=== PATIENT | female | born 1995 | race Hispanic/Latino ===

== ENCOUNTER 2024-06-18 14:59 | Emergency (ER) | payer OTHER, SELFPAY ==
[2024-06-18 15:14] VITALS: BP 161/92; PULSE 86; RESP 18; TEMP 37.1; O2SAT 97; BMI 44.4
--- NOTE | 2024-06-18 16:25 | DI.RAD.S_ITS ---
PROCEDURE: XR CHEST 2V INDICATIONS: cough fever TECHNIQUE: 2 views of the chest were acquired. COMPARISON: None. FINDINGS: Surgical changes and devices: None. Lungs and pleura: Low lung volumes. No dense airspace disease or pleural effusions. Mediastinum: Normal heart size Bones and chest wall: Unremarkable IMPRESSION: No acute radiographic abnormality. Low lung volumes. Dictated by: Abhijeet Whitman M.D. on 06/18/2024 at 16:49 Approved by: Abhijeet Whitman M.D. on 06/18/2024 at 16:50
--- NOTE | 2024-06-18 16:37 | ED_ITS ---
HPI - URI/Sore Throat General Chief Complaint: Upper Respiratory Symptoms Stated Complaint: upper respiratory congestion Time Seen by Provider: 06/18/24 15:50 Source: patient Mode of arrival: Ambulatory History of Present Illness HPI Narrative: Sumi Christianson is a pleasant 29-year-old female with a past medical history of gestational hypertension who presents to the emergency department with her 3 children for congestion, sore throat, cough, body aches, fever x2 days. Patient has 3 children are also patients, her oldest daughter was the 1st 1 to become sick and is a known sick contact. She describes a history of frequent strep th roat which feels similar to her sore throat now, dry cough causing right-sided chest wall pain, body aches and sinus congestion causing headache. She has no dysuria, hematuria, abdominal pain, nausea, vomiting, diarrhea. She does not smoke. Related Data Allergies Allergy/AdvReac Type Severity Reaction Status Date / Time No Known Drug Allergies Allergy Verified 06/18/24 15:14 Review of Systems Review of Systems ROS Unobtainable: All systems reviewed & are unremarkable except as noted in HPI and below Patient History Social History Smoking Status: Never smoker Smoking Status: Never smoker Exam Narrative Exam Narrative: GENERAL: 29 year old patient appears stated age. Well-developed patient, in no acute distress. HEAD: Atraumatic. Normocephalic. EYES: Extraocular motions intact. No scleral icterus. No injection or drainage. ENT: Nose without bleeding, purulent drainage. Throat WITH erythema, mild BL tonsillar hypertrophy NO exudate. Airway patent. NECK: Trachea midline. Cervical ROM intact. CARDIOVASCULAR: Regular rate and rhythm. RESPIRATORY: ?Nonlabored respirations. ?Speaking in clear, full sentences. ?Very slight inspiratory coarse breath sounds throughout, no wheezing. GASTROINTESTINAL: Abdomen soft, non-tender, nondistended. EXTREMITIES: No edema or joint tenderness. BACK: Nontender without deformity or crepitance. No flank tenderness. NEURO: AOx3. ?Clear speech. ?Moves all 4 extremities appropriately. SKIN: No rash or erythema of visible areas Initial Vital Signs Initial Vital Signs: Vital Signs Temperature 98.8 F 06/18/24 15:14 Pulse Rate 86 06/18/24 15:14 Respiratory Rate 18 06/18/24 15:14 Blood Pressure 161/92 H 02/05/25 15:14 Pulse Oximetry 97 06/18/24 15:14 Oxygen Delivery Method Room Air 06/18/24 15:14 Course Orders Ordered: ED Orders 06/18/24 15:40 Covid-19 + FLU A/B + RSV - PCR Stat 06/18/24 16:25 XR chest 2V Stat 06/18/24 16:30 Strep Grp A by PCR Rapid Stat Discontinued Medications Ibuprofen (Ibuprofen 400 Mg Tablet) 600 mg PO NOW ONE Stop: 06/18/24 16:26 Last Admin: 06/18/24 16:45 Dose: 600 mg Documented By: KENDALL Vital Signs Vital signs: Vital Signs - 8 hr 06/18/24 15:14 06/18/24 17:50 Temperature 98.8 F 98.9 F Pulse Rate 86 89 Respiratory Rate 18 18 Blood Pressure 161/92 H 128/61 Pulse Oximetry 97 98 Oxygen Delivery Method Room Air Room Air MDM - URI/Sore Throat Medical Records Attestation: I reviewed the patient's medical records. Lab Data Labs: Lab Results 06/18/24 06/18/24 Range/Units 15:40 16:30 SARS-CoV-2 (PCR) Negative (Negative) Influenza A (RT-PCR) Flu a negative (NEGATIVE) Influenza B (RT-PCR) Flu b negative (NEGATIVE) RSV (PCR) Negative (Negative) Group A Strep (PCR) Negative (Negative) Imaging Data Chest x-ray: Radiologist's Impression: PROCEDURE: XR CHEST 2V INDICATIONS: cough fever TECHNIQUE: 2 views of the chest were acquired. COMPARISON: None. FINDINGS: Surgical changes and devices: None. Lungs and pleura: Low lung volumes. No dense airspace disease or pleural effusions. Mediastinum: Normal heart size Bones and chest wall: Unremarkable IMPRESSION: No acute radiographic abnormality. Low lung volumes. MDM Narrative Medical decision making narrative: 29-year-old female with a past medical history of gestational hypertension who presents to the emergency department with her 3 children for congestion, sore throat, cough, body aches, fever x2 days. Differential diagnosis includes but is not limited to bronchitis, pneumonia, viral URI, pharyngitis, etc. On exam patient is in no acute distress, nontoxic appearing, vital signs appropriate except for mildly elevated BP 161/92. Patient is here with her 3 children who are also patients. Her symptoms primarily started yesterday. Physical exam reveals posterior oropharyngeal erythema, no uvular or unilateral swelling. Some faint inspiratory coarse breath sounds. We will check viral swab, strep swab, chest x-ray, treat with ibuprofen. Chest x-ray negative for any acute abnormalities. For pack viral swab and rapid strep test negative. Patient's baby did test positive for coronavirus type and NL63 which is likely the etiology of her symptoms as well. She is feeling better, all vital signs within normal limits. Recommended rest, hydration, ibuprofen/Tylenol, follow up with primary care doctor, strict ED return pr ecautions discussed. She is stable for discharge home. Discharge Plan Departure Patient Disposition: Home Clinical Impression: Coronavirus infection Instructions: DI for Viral Upper Respiratory Infection -- Adult Activity Restrictions/Additional Instructions: Thank you for coming into the emergency department. Today Agusto tested positive for Coronavrius NL63, would you likely also have as well. The remainder of your testing was negative including a chest x-ray. Please rest, hydrate, use ibuprofen and or acetaminophen for pain or fever. Follow up with primary care doctor and return to the emergency department if any new or worsening symptoms, difficulty breathing or other concerns. Please follow up with your primary care doctor within the next 2-3 days for ER follow-up. (If you do not have a PCP you can call [phone]. ?to schedule an appointment with an [facility] Primary Care Provider) IF YOU DEVELOP ANY NEW OR WORSENING SYMPTOMS, RETURN TO THE ER! Please read the attached instructions, they highlight more specific treatments and interventions for you at home. Thank you for letting me participate in your care, Bertha Chin PA-C Stand Alone Forms: Patient Portal/API/Survey
[2024-06-18] MEDS: IBUPROFEN 400 MG TABLET 600 MG PO (16:45)
[2024-06-18 17:00] LABS: COVID-19 CEPHEID 4-PLEX PCR Negative (Negative); Influenza A - CEPHEID Flu A NEGATIVE (NEGATIVE); Influenza B - CEPHEID Flu B NEGATIVE (NEGATIVE); Respiratory Syncytial Virus Negative (Negative)
[2024-06-18 17:22] LABS: Strep Grp A by PCR Rapid Negative (Negative)
[2024-06-18 17:50] VITALS: BP 128/61; PULSE 89; RESP 18; TEMP 37.2; O2SAT 98
== END 2024-06-18 18:13 | disposition home or self-care (01) ==
PROVIDERS: Emergency Provider Physician Assistant
DX: B34.2 Coronavirus infection, unspecified (principal); R07.9 Chest pain, unspecified
CPT/HCPCS: 0241U; 71046; 87651; 99283